=== PATIENT | male | born 1980 | race Hispanic/Latino ===

== ENCOUNTER 2020-02-09 22:37 | Emergency (ER) | payer SELFPAY ==
--- OUTSIDE RECORDS SUMMARY | 2020-02-09 22:40 | XMS REPORT | Clinical Summary ---
:1980 Author Organization [facility] Dist[facility] ict Address [address] [place] [address] Care Team Providers Name Role Phone Unavailable Primary Care Provider Unavailable Allergies No Known Allergies Medications Medication Sig Dispensed Refills Start Date End Date Status busPIRone (BUSPAR) 10 mg Take 10 mg by 0 Active tablet mouth 3 times daily. chlordiazePOXIDE Take 2 capsules by mouth every 6 hours D ay 1: 2 tablets Q6h 16 capsule 0 01/16/2016 Active (LIBRIUM) 25 mg Day 2: 1 tablet Q6h capsuleIndications: Day 3: 1 tablet Q12h Alcohol intoxication, Day 4: 1 tablet at bed time. uncomplicated Active Problems Not on file Social History Tobacco Use Types Packs/Day Years Used Date Never Assessed Sex Assigned at Date Recorded Not on file Job Start Date Occupation Industry Not on file Not on file Not on file Travel History Travel Start Travel End No recent travel history available. Last Filed Vital Signs Not on file Plan of Treatment Health Maintenance Due Date Last Done Comments IMM Influenza Seasonal May to October (>/= 19 yrs) 05/17/2020 Results Not on fileafter 02/08/2019 Insurance Payer Benefit Plan / Subscriber ID Effective Dates Phone Addre ss Type Group [facility] SELF-PAY xxxxxxxxx 2016-Presen [phone] [id number] SELF-PAY UNSCREENED t [address] [place] [id number]
[2020-02-09 23:59] LABS: Absolute Lymphocytes (CBC) 1.8 K/uL (0.7-4.9); Basophils % 0.3 % (0-1.3); Hematocrit 36.4 % (39.6-49.0); Lymphocytes % 14.1 % (15.3-44.8); MPV 8.1 fL (7.6-11.3); RBC Red Blood Cell Count 4.93 M/uL (4.33-5.43)
[2020-02-10 00:03] LABS: Protime INR 1.07
[2020-02-10 00:15] LABS: ALT/SGPT 24 U/L (12-78); AST/SGOT 12 U/L (15-37); Albumin 4.1 g/dL (3.4-5.0); Alkaline Phosphatase 57 U/L (45-117); BUN Blood Urea Nitrogen 8 mg/dL (7-18); Bicarbonate 27 mmol/L (21-32); Bilirubin Direct < 0.1 mg/dL (0-0.2); Bilirubin Total 0.2 mg/dL (0.2-1.0); Glucose Level 90 mg/dL (74-106); Protein, Total 6.6 g/dL (6.4-8.2); Sodium Level 136 mmol/L (136-145)
[2020-02-10 00:17] LABS: Urine Blood NEGATIVE (NEG); Urine Glucose NEGATIVE (NEG); Urine Protein NEGATIVE (NEG)
--- NOTE | 2020-02-10 01:39 | EDPHYS ---
Physician Documentation [facility] Name: Guevara Farrell Age: 39 yrs Sex: Male : 1980 Arrival Date: 02/09/2020 Time: 22:38 Bed 2 Private MD: ED Physician Justyn Olivera HPI: 02/08 23:41 This 39 yrs old Unknown Male presents to ER via Wheelchair with complaints of Altered kb Mental Status. 23:41 The patient presents with confusion. Onset: The symptoms/episode began/occurred 3 kb day(s) ago. Possible causes: unknown. Associated signs and symptoms: Pertinent positives: gait abnormality, Pertinent negatives: abdominal pain, agitation, ataxia, blurred vision, chest pain, combativeness, confusion, diaphoresis, diarrhea, dizziness, headache, lightheadedness, nausea, numbness, palpitations, seizure, shortness of breath, tingling, vertigo, vomiting, weakness. Current symptoms: In the emergency department the patient's symptoms are unchanged from the initial presentation. Patient's baseline: Neuro: alert and fully oriented, Motor: no deficits, Ambulation: walks without assistance, Speech: normal. The patient has not experienced similar symptoms in the past. The patient has not recently seen a physician. Pt states he has been uncoordinated for the past few days. Friend states pt has been very forgetful since Thursday. States he slept all day on Thursday. Thursday the friend took the pt with him to a few stores and when the friend later asked him if he remembered what they did the pt couldn't tell him. Friend reports pt has been taking hydrocodone and flexeril because he had shoulder surgery a month ago and isn't sure if he took too much or what could be going on. . Historical: - Allergies: 23:00 No Known Allergies; lp1 - Home Meds: 23:00 None [Active]; lp1 - PMHx: 23:00 None; lp1 - PSHx: 23:00 Shoulder surgery; lp1 - Immunization history:: Adult Immunizations up to date. - Social history:: Smoking status: Patient denies any tobacco usage or history of. ROS: 23:41 Constitutional: Negative for fever, chills, and weight loss, Eyes: Negative for injury, kb pain, redness, and discharge, ENT: Negative for injury, pain, and discharge, Neck: Negative for injury, pain, and swelling, Cardiovascular: Negative for chest pain, palpitations, and edema, Respiratory: Negative for shortness of breath, cough, wheezing, and pleuritic chest pain, Abdomen/GI: Negative for abdominal pain, nausea, vomiting, diarrhea, and constipation, Back: Negative for injury and pain, MS/Extremity: Negative for injury and deformity, Skin: Negative for injury, rash, and discoloration. 23:41 Neuro: Positive for altered mental status, gait disturbance, Negative for dizziness, headache, hearing loss, loss of consciousness, numbness, seizure activity, speech changes, syncope, near syncope, tingling, tinnitus, tremor, visual changes, weakness. Exam: 23:44 Constitutional: This is a well developed, well nourished patient who is awake, alert, kb and in no acute distress. Head/Face: Normocephalic, atraumatic. Eyes: Pupils equal round and reactive to light, extra-ocular motions intact. Lids and lashes normal. Conjunctiva and sclera are non-icteric and not injected. Cornea within normal limits. Periorbital areas with no swelling, redness, or edema. ENT: Nares patent. No nasal discharge, no septal abnormalities noted. Tympanic membranes are normal and external auditory canals are clear. Oropharynx with no redness, swelling, or masses, exudates, or evidence of obstruction, uvula midline. Mucous membranes moist. Neck: Trachea midline, no thyromegaly or masses palpated, and no cervical lymphadenopathy. Supple, full range of motion without nuchal rigidity, or vertebral point tenderness. No Meningismus. Chest/axilla: Normal chest wall appearance and motion. Nontender with no deformity. No lesions are appreciated. Cardiovascular: Regular rate and rhythm with a normal S1 and S2. No gallops, murmurs, or rubs. Normal PMI, no JVD. No pulse deficits. Respiratory: Lungs have equal breath sounds bilaterally, clear to auscultation and percussion. No rales, rhonchi or wheezes noted. No increased work of breathing, no retractions or nasal flaring. Abdomen/GI: Soft, non-tender, with normal bowel sounds. No distension or tympany. No guarding or rebound. No evidence of tenderness throughout. Skin: Warm, dry with normal turgor. Normal color with no rashes, no lesions, and no evidence of cellulitis. MS/ Extremity: Pulses equal, no cyanosis. Neurovascular intact. Full, normal range of motion. 23:44 Neuro: Orientation: is normal, to person, place, time \T\ situation. Mentation: is normal, able to follow commands, Motor: is normal, Sensation: is normal, Gait: is unsteady. Vital Signs: 22:56 BP 126 / 94; Pulse 82; Resp 18; Temp 98.2(TE); Pulse Ox 98% on R/A; Weight 72.57 kg lp1 (R); Height 5 ft. 4 in. (162.56 cm); Pain 0/10; 02/09 00:00 BP 126 / 89; Pulse 80; Resp 16; Pulse Ox 99% ; rr5 01:44 BP 118 / 86; Pulse 81; Resp 16; Temp 98; Pulse Ox 99% on R/A; rv 02/08 22:56 Body Mass Index 27.46 (72.57 kg, 162.56 cm) lp1 MDM: 02/08 22:56 Patient medically screened. kb 23:41 Data reviewed: vital signs, nurses notes. Data interpreted: Pulse oximetry: on room air kb is 98 %. Interpretation: normal. 23:46 ED course: Pt now ambulating to restroom with steady gait. . kb 02/09 00:40 Transition of care: After a detail discussion of the patient's case, care is kb transferred to Justyn Olivera MD. 02/08 23:02 Order name: Acetaminophen 02/08 23:02 Order name: Basic Metabolic Panel 02/08 23:02 Order name: CBC with Diff 02/08 23: Order name: ETOH Level 02/08 23:02 Order name: Hepatic Function 02/08 23:02 Order name: PT-INR; Complete Time: 00:08 02/08 23:02 Order name: Ptt, Activated; Complete Time: 00:08 02/08 23:02 Order name: Salicylate; Complete Time: 00:16 02/08 23:02 Order name: Urine Drug Screen; Complete Time: 00:32 02/09 01:37 Interpretation: Normal except: BZO POSITIVE; OPI POSITIVE. tw4 02/08 23:03 Order name: Acetaminophen Level; Complete Time: 00:16 [facility] 02/08 23:03 Order name: Basic Metabolic Panel; Complete Time: 00:16 [facility] 02/08 23:03 Order name: CBC with Automated Diff; Complete Time: 00:07 [facility] 02/08 23:03 Order name: Alcohol Serum/Plasma; Complete Time: 00:17 EDCT 02/08 23:03 Order name: Liver (Hepatic) Function; Complete Time: 00:16 [facility] 02/08 22:56 Order name: CT Head Brain wo Cont kb 02/08 23:02 Order name: EKG; Complete Time: 23:03 kb 02/08 23:02 Order name: EKG - Nurse/Tech; Complete Time: 23:56 kb 02/08 23:02 Order name: IV Saline Lock; Complete Time: 23:56 kb 02/08 23:02 Order name: Labs collected and sent; Complete Time: 23:57 kb 02/08 23:02 Order name: Urine Dipstick-Ancillary (obtain specimen); Complete Time: 23:57 kb 02/09 00:06 Order name: Urine Dipstick--Ancillary (enter results); Complete Time: 00:19 mt EC:51 Rate is 69 beats/min. Rhythm is regular. QRS Anderson is Normal. AR interval is normal. QT tw4 interval is normal. No Q waves. T waves are Normal. No ST changes noted. Clinical impression: Normal ECG. Interpreted by me. Reviewed by me. Administered Medications: No medications were administered Disposition: 03:52 Co-signature as Attending Physician, Justyn Olivera MD I agree with the assessment and tw4 plan of care. Disposition: 02/10/20 01:38 Discharged to Home. Impression: Adverse effect of benzodiazepines, Adverse effect of other opioids. - Condition is Stable. - Discharge Instructions: Benzodiazepine Overdose, Opioid Use Disorder, Delirium. - Medication Reconciliation Form, Thank You Letter, Antibiotic Education, Prescription Opioid Use form. - Follow up: Private Physician; When: Upon discharge from the Emergency Department; Reason: If symptoms return, Recheck today's complaints, Continuance of care, Re-evaluation by your physician. - Problem is new. - Symptoms have improved. Signatures: Dispatcher [employer] EDMelissa Armenta, CIVIL RIGHTS INVESTIGATOR-C CIVIL RIGHTS INVESTIGATOR-Aggie Randle, RN RN lp1 Justyn Olivera MD MD tw4 Uriel Reed, JOSE JUAN RN rv Corrections: (The following items were deleted from the chart) 02/08 23:41 23:41 Neuro: Positive for altered mental status, Negative for dizziness, headache, kb hearing loss, loss of consciousness, numbness, seizure activity, speech changes, syncope, near syncope, tingling, tinnitus, tremor, visual changes, weakness, kb 02/09 01:45 01:38 02/10/2020 01:38 Discharged to Home. Impression: Adverse effect of rv benzodiazepines; Adverse effect of other opioids. Condition is Stable. Forms are Medication Reconciliation Form, Thank You Letter, Antibiotic Education, Prescription Opioid Use. Follow up: Private Physician; When: Upon discharge from the Emergency Department; Reason: If symptoms return, Recheck today's complaints, Continuance of care, Re-evaluation by your physician. Problem is new. Symptoms have improved. tw4
--- NOTE | 2020-02-10 01:39 | ER ---
Nurse's Notes [facility] Name: Guevara Farrell Age: 39 yrs Sex: Male : 1980 Arrival Date: 02/09/2020 Time: 22:38 Bed 2 Private MD: Diagnosis: Adverse effect of benzodiazepines;Adverse effect of other opioids Presentation: 02/08 22:56 Chief complaint: Patient's friend states he has been confused and forgetful since lp1 Thursday, 2 days ago; Patient states "I feel like my coordination is bad, I can't walk straight"; Patient denies any vision changes, extremity weakness. Coronavirus screen: Proceed with normal triage. Ebola Screen: No symptoms or risks identified at this time. Initial Sepsis Screen: Does the patient meet any 2 criteria? No. Patient's initial sepsis screen is negative. Does the patient have a suspected source of infection? No. Patient's initial sepsis screen is negative. Risk Assessment: Do you want to hurt yourself or someone else? Patient reports no desire to harm self or others. Onset of symptoms was February 07, 2020. 22:56 Method Of Arrival: Wheelchair lp1 22:56 Acuity: CHA 3 lp1 Historical: - Allergies: 23:00 No Known Allergies; lp1 - Home Meds: 23:00 None [Active]; lp1 - PMHx: 23:00 None; lp1 - PSHx: 23:00 Shoulder surgery; lp1 - Immunization history:: Adult Immunizations up to date. - Social history:: Smoking status: Patient denies any tobacco usage or history of. Screenin:25 Abuse screen: Denies threats or abuse. Denies injuries from another. Nutritional lp1 screening: No deficits noted. Tuberculosis screening: No symptoms or risk factors identified. Fall Risk Total Redmond Fall Scale indicates High Risk Score (45 or more points). Fall prevention measures have been instituted. Side Rails Up X 2 As available patient and family educated on Fall Prevention Program and Strategies. Assessment: 23:00 General: Appears in no apparent distress. comfortable, Behavior is calm, cooperative, rr5 appropriate for age. Pain: Denies pain. 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 23:00 Cardiovascular: Capillary refill < 3 seconds Patient's skin is warm and dry. rr5 Respiratory: Airway is patent Respiratory effort is even, unlabored, Respiratory pattern is regular, symmetrical. GI: No signs and/or symptoms were reported involving the gastrointestinal system. : No signs and/or symptoms were reported regarding the genitourinary system. EENT: No signs and/or symptoms were reported regarding the EENT system. Derm: Skin is intact, is healthy with good turgor, Skin temperature is warm. Musculoskeletal: Circulation, motion, and sensation intact. Capillary refill < 3 seconds. 02/09 00:02 Reassessment: Patient appears in no apparent distress at this time. No changes from rr5 previously documented assessment. Patient and/or family updated on plan of care and expected duration. Pain level reassessed. awaiting for results. 01:15 Reassessment: Patient appears in no apparent distress at this time. Patient is alert, rr5 oriented x 3, equal unlabored respirations, skin warm/dry/pink. Vital Signs: 02/08 22:56 BP 126 / 94; Pulse 82; Resp 18; Temp 98.2(TE); Pulse Ox 98% on R/A; Weight 72.57 kg lp1 (R); Height 5 ft. 4 in. (162.56 cm); Pain 0/10; 02/09 00:00 BP 126 / 89; Pulse 80; Resp 16; Pulse Ox 99% ; rr5 01:44 BP 118 / 86; Pulse 81; Resp 16; Temp 98; Pulse Ox 99% on R/A; rv 02/08 22:56 Body Mass Index 27.46 (72.57 kg, 162.56 cm) lp1 ED Course: 02/08 22:38 Patient arrived in ED. cl3 22:55 Melissa Fink FNP-C is [facility]. kb 22:55 Justyn Olivera MD is Attending Physician. kb 23:00 Arm band placed on. lp1 23:20 Albert Buck RN is Primary Nurse. rr5 23:20 Patient has correct armband on for positive identification. Placed in gown. Bed in low rr5 position. Call light in reach. Side rails up X2. air sampling and monitoring on. Pulse ox on. NIBP on. 23:24 Triage completed. lp1 23:30 CT Head Brain wo Cont In Process Unspecified. EDMS 23:50 Urine collected: clean catch specimen, clear, EKG done, by ED staff, reviewed by sharan MO. 23:55 Inserted saline lock: 20 gauge in right antecubital area, using aseptic technique. rr5 Blood collected. 02/09 01:45 No provider procedures requiring assistance completed. IV discontinued, intact, rv bleeding controlled, No redness/swelling at site. Pressure dressing applied. Administered Medications: No medications were administered Outcome: 01:38 Discharge ordered by . kristin 01:45 Discharged to home ambulatory, with family. rv 01:45 Condition: good 01:45 Discharge instructions given to patient, family, Instructed on discharge instructions, follow up and referral plans. Demonstrated understanding of instructions, follow-up care. 01:45 Patient left the ED. rv Signatures: Dispatcher [employer] EDCT Melissa Fink FNP-C FNP-Ckb Pena, Laura RN RN lp1 Justyn Olivera MD MD tw4 Uriel Reed, RN RN Albert Dye, RN RN rr5 Orquidea Jolley cl3
[2020-02-10 01:54] VITALS: O2SAT 99
[2020-02-10 01:55] VITALS: BP 118/86; TEMP 98
--- NOTE | 2020-02-10 06:48 | EKG ---
Test Date: 2020-02-09 Test Time: 23:52:19 Apartment Maintenance: R MEASUREMENT RESULTS: Intervals: Rate: 69 WI: 152 QRSD: 82 QT: 356 QTc: 381 [place]: P: 41 WI: 152 QRS: 42 T: 5 INTERPRETIVE STATEMENTS: Normal sinus rhythm Normal ECG Compared to ECG 11/02/2015 14:40:42 Sinus tachycardia no longer present Electronically Signed On 02-10-20 06:47:50 CDT by Nilo Parra
--- NOTE | 2020-02-10 18:23 | RAD REPORT ---
EXAM DESCRIPTION: CT - Head Brain Wo Cont - 02/10/2020 5:27 am CLINICAL HISTORY: 39-year-old male with confusion and forgetfulness since Thursday. Patient states he feels like his coordination is off, mental status change TECHNIQUE: Multiple axial CT images of the brain were performed followed by sagittal and coronal rec onstructed images. The CT study is performed according to ALARA (as low as reasonably achievable) or ALARA/IMAGE GENTLY, with automatic adjustment of mA and/or kV according to patient size. Performed on: 02/09/2020 at 11:19 PM COMPARISON: 11/02/2015. FINDINGS: There is no evidence of mass, acute mass effect or midline shift. There are no acute extra -axial fluid collections. There is no evidence of acute intracranial hemorrhage. The cerebral sulci and ventricles are normal in size and configuration. There are no focal abnormal areas of increased or decreased attenuation. There is no significant mucosal thickening of the paranasal sinuses. The mastoid air cells are clear. The orbital contents are grossly unremarkable. No acute osseous abnormalities are identified. No focal soft tissue abnormalities are identified. IMPRESSION: There is no evidence of acute intracranial pathology. Electronically signed by: Shivani Ramírez DO 02/09/2020 11:43 PM CDT Due to temporary technical issues with the PACS/Fluency reporting system, reports are being signed by the in house radiologist without review as a courtesy to ensure prompt reporting. The interpreting r adiologist is fully responsible for the content of the report.
== END 2020-02-10 01:45 | disposition home or self-care (01) ==
LOC: ER 22:37
DX: R41.82 Altered mental status, unspecified (principal); T40.2X5A Adverse effect of other opioids, initial encounter; T42.4X5A Adverse effect of benzodiazepines, initial encounter; Y92.9 Unspecified place or not applicable
CPT/HCPCS: 36415; 70450; 80048; 80076; 80307; 80320; 80329; 81003; 85025; 85610; 85730; 93005; 99284

== ENCOUNTER 2024-09-08 19:28 | Inpatient (IN) | payer OTHER, SELFPAY ==
[2024-09-08] MEDS ORDERED: NA CHLORIDE 0.9% 1,000 ML ONE (20:45)
[2024-09-08 21:01] LABS: MCV 75.9 fL (80-100)
[2024-09-08 21:14] LABS: PT Prothrombin Time 11.4 SECONDS (9.4-12.5); PTT, Activated Partial Thromb 29.7 SECONDS (24.3-36.9); Protime INR 1.09
[2024-09-08 21:15] LABS: Hematocrit 31.5 % (39.6-49.0); Hemoglobin 10.5 g/dL (13.6-17.9); MCH 25.2 pg (27.0-35.0); MCHC 33.2 g/dL (32.0-36.0); MPV 7.9 fL (7.6-11.3); Platelets 240 thou/uL (152-406); RBC Red Blood Cell Count 4.15 M/uL (4.33-5.43); Red Cell Distribution Width 19.5 % (12.1-15.2)
[2024-09-08 21:17] LABS: Nucleated Red Blood Cells % 0.4 % (0-0)
--- NOTE | 2024-09-08 21:26 | RAD REPORT ---
EXAM: CT Head Brain Wo Cont HISTORY: SYNCOPE COMPARISON: 02/09/2020 TECHNIQUE: Multiple contiguous axial images were obtained for a CT of the brain without contrast. Sag ittal and coronal reformats were performed. One or more of the following dose reduction techniques were used: Automated exposure control, adjus tment of the mA and kV according to patient size, and iterative reconstruction. Unless otherwise specified, incidental findings do not require dedicated imaging follow-up. FINDINGS: No evidence of hydrocephalus, intracranial hemorrhage, or extra-axial fluid collection. The brain is normal in morphology. The calvarium is intact. The visualized paranasal sinuses and mastoid air cells are essentially clear . IMPRESSION: No evidence of acute intracranial abnormality.
[2024-09-08 21:27] LABS: ALT/SGPT 387 U/L (16-61); AST/SGOT 430 U/L (15-37); Albumin 3.2 g/dL (3.4-5.0); Albumin/Globulin Ratio 0.9 (1.1-1.8); Alkaline Phosphatase 226 U/L (45-117); Anion Gap 15.8 mEq/L (5.0-15.0); BUN Blood Urea Nitrogen 5 mg/dL (7-18); Bicarbonate 24 mEq/L (21-32); Bilirubin Direct 1.6 mg/dL (0-0.2); Bilirubin Indirect, Calculated 0.4 mg/dL (0.2-0.8); Globulin 3.4 g/dL (2.3-3.5); Glomerular Filtration Rate 103 ml/min (=/>90); Glucose Level 207 mg/dL (74-106); Potassium 2.8 mEq/L (3.5-5.1); Protein, Total 6.6 g/dL (6.4-8.2); Sodium Level 133 mEq/L (136-145)
[2024-09-08] MEDS ORDERED: ASPIRIN 81 MG CHEWABLE TABLET ONE (21:42)
[2024-09-08 21:56] LABS: Barbiturates NEGATIVE (NEGATIVE); Benzodiazepines NEGATIVE (NEGATIVE); Cocaine NEGATIVE (NEGATIVE); METHAMPHETAM NEGATIVE (NEGATIVE); Methadone NEGATIVE (NEGATIVE); Opiates NEGATIVE (NEGATIVE); Phencyclidine NEGATIVE (NEGATIVE); THC Cannibis NEGATIVE (NEGATIVE)
[2024-09-08 22:01] LABS: Specific Gravity < 1.005 (1.005-1.030); Sqamous Epithelial None Seen /HPF (None Seen); Urine Bacteria None Seen /HPF (<20); Urine Bilirubin NEGATIVE (Negative); Urine Blood Negative (Negative); Urine Clarity Clear (Clear); Urine Color Light-Yellow (Yellow); Urine Culture Reflex Order NOT NEEDED; Urine Glucose 3+ (Negative); Urine Ketones NEGATIVE (Negative); Urine Microscopic Reflex YN ORDER UMIC; Urine Nitrite NEGATIVE (Negative); Urine Protein NEGATIVE (Negative); Urine RBC <5 /HPF (None Seen); Urine Urobilinogen Normal (Normal); Urine WBC <5 /HPF (<5); Urine pH 6.5 (5.0-7.0)
[2024-09-08 22:04] LABS: Anisocytosis 1+; Band Neutrophils 1 % (0-1); Blood Morphology Comment NOTED (NOT SEEN); Differential Total Cells Count 100; Eosinophils 1 % (0-3); Lymphocytes 31 % (15-42); Monocytes 5 % (0-10); Nucleated Red Blood Cells 1 /100WBC; Platelet Estimate ADEQ; Segmented Neutrophils 62 % (40-80)
[2024-09-08 22:05] LABS: Polychromasia 1+
--- NOTE | 2024-09-08 22:25 | ER ---
Nurse's Notes [facility] Name: Guevara Farrell Age: 44 yrs Sex: Male : 1980 Arrival Date: 09/08/2024 Time: 19:28 Bed 8 Private MD: Diagnosis: Syncope;Subsequent non-ST elevation (NSTEMI) myocardial infarction Presentation: 09/08 19:49 Chief complaint: Spouse and/or significant other states: unwitnessed episode of al5 syncope. states that the patient has been going through etoh withdrawal, called her prior stating he was having blurred vision. patient states he had a drink about 30 minutes prior to arrival but before that was 8 hours prior. Coronavirus screen: At this time, the client does not indicate any symptoms associated with coronavirus-19. Ebola Screen: No symptoms or risks identified at this time. Initial Sepsis Screen: Does the patient meet any 2 criteria? HR > 90 bpm. Does the patient have a suspected source of infection? No. Patient's initial sepsis screen is negative. Risk Assessment: Do you want to hurt yourself or someone else? Patient reports no desire to harm self or others. Onset of symptoms was September 08, 2024. 19:49 Method Of Arrival: Ambulatory al5 19:49 Acuity: CHA 3 al5 Triage Assessment: 19:54 General: Appears in no apparent distress. comfortable, Behavior is calm, cooperative. al5 Pain: Denies pain. EENT: No signs and/or symptoms were reported regarding the EENT system. Neuro: Reports blurred vision prior to arrival dizziness. Cardiovascular: Patient's skin is warm and dry. Respiratory: Airway is patent Respiratory effort is even, unlabored, Respiratory pattern is regular, symmetrical. GI: Abdomen is flat, non-distended, Reports constipation, reports etoh withdrawl. : Reports pain with urination, "dribbling". Derm: Skin is intact, is healthy with good turgor, Skin is pink, warm \\T\\ dry. normal. Musculoskeletal: No signs and/or symptoms reported regarding the musculoskeletal system. Historical: - Allergies: 19:53 No Known Allergies; al5 - PMHx: 19:53 Alcohol dependence; Alcoholism; al5 - PSHx: 19:53 shoulder; ankle; al5 - Immunization history:: Adult Immunizations up to date. - Infectious Disease History:: Denies. - Social history:: Smoking status: Reported history of juuling and/or vaping. Patient uses alcohol, on a daily basis. - Family history:: not pertinent. - Hospitalizations: : No recent hospitalization is reported. Screenin:41 [facility] ED Fall Risk Assessment (Adult) History of falling in the last 3 months, jb4 including since admission No falls in past 3 months (0 pts) Confusion or Disorientation No (0 pts) Intoxicated or Sedated Yes (3 pts) Impaired Gait No (0 pts) Mobility Assist Device Used No (0 pt) Altered Elimination No (0 pt) Score/Fall Risk Level 3 or more points = High Risk Oriented to surroundings, Maintained a safe environment. Abuse screen: Denies threats or abuse. Nutritional screening: No deficits noted. Tuberculosis screening: No symptoms or risk factors identified. 22:54 [facility] Withdrawal Assessment for Alcohol, revised ([facility]): jb4 Nausea/Vomitin - No nausea or vomiting Headache: 1 - Very mild Paroxysmal Sweats: 0 - No sweats visible Anxiety: 4 - Moderately anxious, guarded Agitation: 0 - Normal actiivty Tremor: 4 - Moderate when client's hands extended Auditory Disturbances: 0 - Not present Visual Disturbances: 0 - Not present Tactile Disturbances: 0 - None Orientation and Clouding of Sensorium: 1 - Oriented but cannot do serial additions Total Score: 10 to 15: Mild Withdrawal. 23:29 [facility] Withdrawal Assessment for Alcohol, revised ([facility]): jb4 Nausea/Vomitin - No nausea or vomiting Headache: 0 - Not present Paroxysmal Sweats: 0 - No sweats visible Anxiety: 0 - No anxiety, at ease Agitation: 0 - Normal actiivty Tremor: 0 - No tremor Auditory Disturbances: 0 - Not present Visual Disturbances: 0 - Not present Tactile Disturbances: 0 - None Orientation and Clouding of Sensorium: 1 - Oriented but cannot do serial additions Total Score: < 10 Very mild withdrawal. Assessment: 20:30 General: Appears in no apparent distress. uncomfortable, Behavior is calm, cooperative, jb4 appropriate for age. Pain: Denies pain. Neuro: Level of Consciousness is awake, alert, obeys commands, Oriented to person, place, time, situation. Cardiovascular: Patient's skin is warm and dry. Respiratory: Airway is patent Respiratory effort is even, unlabored, Respiratory pattern is regular, symmetrical. Derm: Skin is intact, Skin is pink, warm \\T\\ dry. Musculoskeletal: Circulation, motion, and sensation intact. Range of motion: intact in all extremities. 21:46 Reassessment: Pt had 2 bottles of Smirnoff at the bedside. Instructed pt's to take jb4 them to the car. 22:40 Reassessment: Patient appears in no apparent distress at this time. Patient and/or jb4 family updated on plan of care and expected duration. Pain level reassessed. Patient is alert, oriented x 3, equal unlabored respirations, skin warm/dry/pink. 23:29 Reassessment: Patient appears in no apparent distress at this time. Patient and/or jb4 family updated on plan of care and expected duration. Pain level reassessed. Patient is alert, oriented x 3, equal unlabored respirations, skin warm/dry/pink. 23:30 Cardiovascular: Rhythm is sinus tachycardia. jb4 Vital Signs: 19:49 BP 128 / 91; Pulse 115; Resp 16; Temp 98.2; Pulse Ox 100% on R/A; Weight 65.77 kg; al5 Height 5 ft. 4 in. ; 21:21 BP 121 / 87; rn 22:40 BP 140 / 99; Pulse 124; Resp 16; Pulse Ox 99% on R/A; jb4 23:29 BP 118 / 88; Pulse 112; Resp 18; Pulse Ox 99% on R/A; jb4 09/09 00:55 BP 107 / 80; Pulse 109; Resp 18 S; Pulse Ox 97% on R/A; br2 09/08 19:49 Body Mass Index 24.89 (65.77 kg, 162.56 cm) al5 Vitals: 09/08 23:30 Cardiac Rhythm Assessment Sinus tach. jb4 ED Course: 19:31 Patient arrived in ED. jj6 19:53 Triage completed. al5 19:55 Arm band placed on right wrist. Patient placed in waiting room, in view of staff al5 members. 20:00 Benigno Wolff MD is Attending Physician. rn 20:30 Client placed on continuous cardiac and pulse oximetry monitoring. NIBP monitoring jb4 applied. electronic device monitor on. Pulse ox on. 20:51 Inserted saline lock: 22 gauge in right antecubital area, using aseptic technique. hw Blood collected. Flushed with 10 mL NS. 21:03 CT Head Brain wo Cont In Process Unspecified. EDMS 21:14 Urinalysis w/ reflexes Sent. hw 21:15 Urine collected: clean catch specimen, clear. hw 22:24 Matt Mcknight MD is Hospitalizing Provider. rn 22:41 Patient has correct armband on for positive identification. Bed in low position. Call jb4 light in reach. Side rails up X 1. Provided Education on: plan of care. 22:41 No provider procedures requiring assistance completed. Patient admitted, IV remains in jb4 place. 09/09 01:19 Melanie Mcintyre, RN is Primary Nurse. al5 Administered Medications: 09/08 20:52 Drug: NS 0.9% IV 1000 ml IV at 1000 ml once; to be given as a bolus over 60 minutes jb4 Route: IV; Rate: 1000 ml; Site: right antecubital; 09/09 01:20 Follow up: Response: No adverse reaction; IV Status: Completed infusion; IV Intake: al5 1000ml 09/08 21:46 Drug: Aspirin PO Chewable Tablet 324 mg PO once; 81 mg tablets x 4 Route: PO; jb4 22:58 Follow up: Response: No adverse reaction jb4 22:57 Drug: Diazepam IVP 5 mg IVP once Route: IVP; Site: right antecubital; jb4 23:31 Follow up: Response: No adverse reaction; Marked relief of symptoms; Anxiety decreased jb4 Medication: 23:29 VIS not applicable for this client. jb4 Intake: 09/09 01:20 IV: 1000ml; Total: 1000ml. al5 Outcome: 09/08 22:24 Decision to Hospitalize by Provider. rn 09/09 01:20 Admitted to Med/surg accompanied by tech, family with patient, via wheelchair, room al5 406, with chart, Condition: stable Instructed on the need for admit, 01:20 Patient left the ED. al5 Signatures: Dispatcher [employer] EDMS Benigno Wolff MD MD rn Bryson, James RN RN jb4 Bev Rockwell6 Melanie Mcinytre RN RN al5 Kira Perez RN RN br2 Shayy Florez Corrections: (The following items were deleted from the chart) 09/08 23:30 22:54 Clinical [place] Withdrawal Assessment for Alcohol, revised ([facility]): jb4 Headache: 1 - Very mild Anxiety: 4 - Moderately anxious, guarded Tremor: 4 - Moderate when client's hands extended Orientation and Clouding of Sensorium: 1 - Oriented but cannot do serial additions Total Score: 10 to 15: Mild Withdrawal jb4
--- NOTE | 2024-09-08 22:25 | EDPHYS ---
Physician Documentation [facility] Name: Guevara Farrell Age: 44 yrs Sex: Male : 1980 Arrival Date: 09/08/2024 Time: 19:28 Bed 8 Private MD: ED Physician Benigno Wolff HPI: 09/08 21:05 This 44 yrs old Male presents to ER via Ambulatory with complaints of Syncope, rn Alcohol Withdrawal. 21:05 The patient has experienced syncope. Onset: The symptoms/episode began/occurred today. rn Associated injury: The patient did not suffer any apparent associated injury. Current symptoms: Currently, the patient is not experiencing any symptoms. The patient has experienced similar episodes in the past. Patient and family member report syncope earlier today. Patient is a chronic drinker and has on been on a binge since before . States drinks "sips" every hour. Last drink was just prior to arrival and has bottles of alcohol in his jacket. Spouse reports patient is not withdrawing but he has still been actively drinking. Patient reports not eating or drinking much, not drinking water, feels dehydrated and generalized weakness. No focal weakness. No trauma during syncopal episode. Denies focal pain. No chest pain or shortness of breath. Patient reports felt lightheaded and had double vision yesterday, syncopal episode happened earlier today. Currently feels fine and wants to go home and drink.. Historical: - Allergies: 19:53 No Known Allergies; al5 - PMHx: 19:53 Alcohol dependence; Alcoholism; al5 - PSHx: 19:53 shoulder; ankle; al5 - Immunization history:: Adult Immunizations up to date. - Infectious Disease History:: Denies. - Social history:: Smoking status: Reported history of juuling and/or vaping. Patient uses alcohol, on a daily basis. - Family history:: not pertinent. - Hospitalizations: : No recent hospitalization is reported. ROS: 21:05 Constitutional: Negative for fever, chills, and weight loss, Eyes: Negative for injury, rn pain, redness, and discharge, Neck: Negative for injury, pain, and swelling, Cardiovascular: Negative for chest pain, palpitations, and edema, Respiratory: Negative for shortness of breath, cough, wheezing, and pleuritic chest pain, Abdomen/GI: Negative for abdominal pain, nausea, vomiting, diarrhea, and constipation, Back: Negative for injury and pain, MS/Extremity: Negative for injury and deformity, Skin: Negative for injury, rash, and discoloration, Neuro: Positive for syncope, negative for focal weakness or numbness, negative for seizure activity Exam: 21:05 Constitutional: This is a well developed, well nourished patient who is awake, alert, rn and in no acute distress. Patient ambulatory to room, appears as if he has been drinking and not walking a straight line Head/Face: Normocephalic, atraumatic. Eyes: Pupils equal round and reactive to light, extra-ocular motions intact. ENT: Dry mucous membranes Neck: No meningismus or C-spine tenderness Cardiovascular: Tachycardic, regular Respiratory: No increased work of breathing, no retractions or nasal flaring. Abdomen/GI: Soft, non-tender Back: No spinal tenderness. No costovertebral tenderness. Full range of motion. MS/ Extremity: Pulses equal, no cyanosis. Neurovascular intact. Full, normal range of motion. Equal circumference. Neuro: Awake and alert, GCS 15, oriented to person, place, time, and situation. Cranial nerves II-XII grossly intact. Motor strength 5/5 in all extremities. Sensory grossly intact. 21:22 ECG was reviewed by the Attending Physician. rn Vital Signs: 19:49 BP 128 / 91; Pulse 115; Resp 16; Temp 98.2; Pulse Ox 100% on R/A; Weight 65.77 kg; al5 Height 5 ft. 4 in. ; 21:21 BP 121 / 87; rn 22:40 BP 140 / 99; Pulse 124; Resp 16; Pulse Ox 99% on R/A; jb4 23:29 BP 118 / 88; Pulse 112; Resp 18; Pulse Ox 99% on R/A; jb4 09/09 00:55 BP 107 / 80; Pulse 109; Resp 18 S; Pulse Ox 97% on R/A; br2 09/08 19:49 Body Mass Index 24.89 (65.77 kg, 162.56 cm) al5 MDM: 09/08 20:00 Medical Screening Exam initiated rn 21:35 ED course: Troponin 188. Patient denies ever having chest pain or shortness of breath. rn Aspirin ordered. 22:23 Differential Diagnosis: cardiac arrhythmia, drug effect, seizure, vasovagal episode, rn Alcohol intoxication, early withdrawal. Data reviewed: vital signs, nurses notes, lab test result(s), EKG, radiologic studies, CT scan, and as a result, I will admit patient. Consideration of Admission/Observation Patient was admitted/placed on observation. Escalation of care including admission/observation considered. Counseling: I had a detailed discussion with the patient and/or guardian regarding the historical points, exam findings, and any diagnostic results supporting the discharge/admit diagnosis, lab results, radiology results, the need for further work-up and treatment in the hospital. 09/08 20:02 Order name: Acetaminophen 09/08 20:02 Order name: Basic Metabolic Panel 09/08 20:02 Order name: CBC with Diff; Complete Time: 22:18 09/08 20:02 Order name: ETOH Level; Complete Time: 21:35 09/08 20:02 Order name: Hepatic Function 09/08 20:02 Order name: PT-INR; Complete Time: 21:21 09/08 20:02 Order name: Ptt, Activated; Complete Time: 21: 09/08 20:02 Order name: Salicylate; Complete Time: 21:21 09/08 20:02 Order name: Urine Drug Screen; Complete Time: 22:18 09/08 20:02 Order name: Troponin High Sensitivity 09/08 20:32 Order name: Urinalysis w/ reflexes; Complete Time: 22:18 09/08 21:24 Order name: Manual Differential; Complete Time: 22:18 [facility] 09/08 23:27 Order name: Urinalysis w/ reflexes [facility] 09/08 23:27 Order name: Creatine Phosphokinase [facility] 09/08 23:27 Order name: Creatine Phosphokinase [facility] 09/08 23:27 Order name: Creatine Phosphokinase [facility] 09/08 23:32 Order name: Creatine Phosphokinase [facility] 09/08 20:32 Order name: CT Head Brain wo Cont; Complete Time: 21:26 09/08 20:02 Order name: EKG - Nurse/Tech; Complete Time: 20:51 09/08 20:02 Order name: IV Saline Lock; Complete Time: 20:51 rn 09/08 20:02 Order name: Labs collected and sent; Complete Time: 20:51 rn EC:22 Rate is 112 beats/min. Rhythm is regular. QRS [place] is Normal. OR interval is normal. rn QRS interval is normal. QT interval is normal. No Q waves. T waves are Normal. T waves are Inverted in leads II, III, aVF, V3, V4, V5, V6. No ST changes noted. Clinical impression: Sinus tachycardia. Interpreted by me. Reviewed by me. Administered Medications: 20:52 Drug: NS 0.9% IV 1000 ml IV at 1000 ml once; to be given as a bolus over 60 minutes jb4 Route: IV; Rate: 1000 ml; Site: right antecubital; 09/09 01:20 Follow up: Response: No adverse reaction; IV Status: Completed infusion; IV Intake: al5 1000ml 09/08 21:46 Drug: Aspirin PO Chewable Tablet 324 mg PO once; 81 mg tablets x 4 Route: PO; jb4 22:58 Follow up: Response: No adverse reaction jb4 22:57 Drug: Diazepam IVP 5 mg IVP once Route: IVP; Site: right antecubital; jb4 23:31 Follow up: Response: No adverse reaction; Marked relief of symptoms; Anxiety decreased jb4 Disposition Summary: 09/08/24 22:24 Hospitalization Ordered Notes: Hospitalization Status: Inpatient Admission rn Provider: Matt Mcknight rn Location: Telemetry/MedSurg (Inpatient) rn Condition: Stable rn Problem: new rn Symptoms: have improved rn Bed/Room Type: Standard rn Room Assignment: 406(09/08/24 23:59) vk Diagnosis - Syncope rn - Subsequent non-ST elevation (NSTEMI) myocardial infarction rn Forms: - Medication Reconciliation Form rn - SBAR form rn - Leadership Thank You Letter rn Signatures: Dispatcher [employer] EDBenigno García MD MD rn Bryson, James, RN RN jb4 Tiny Louise Amanda, RN RN al5 Corrections: (The following items were deleted from the chart) 20:02 20:02 ACETAMINOPHEN+C.LAB.BRZ ordered. EDMS EDMS 20:02 20:02 BASIC METABOLIC PANEL+C.LAB.BRZ ordered. EDMS EDMS 20:02 20:02 CBC+H.LAB.BRZ ordered. EDMS EDMS 20:02 20:02 ETHANOL+C.LAB.BRZ ordered. EDMS EDMS 20:02 20:02 HEPATIC FUNCTION+C.LAB.BRZ ordered. EDMS EDMS 20:02 20:02 PROTIME (+INR)+COAG.LAB.BRZ ordered. EDMS EDMS 20:02 20:02 PTT, ACTIVATED+COAG.LAB.BRZ ordered. EDMS EDMS 20:02 20:02 SALICYLATE+C.LAB.BRZ ordered. EDMS EDMS 20:02 20:02 URINE DRUG SCREEN+UC.LAB.BRZ ordered. EDMS EDMS 20:33 20:32 Urinalysis+U.LAB.BRZ ordered. EDMS EDMS 23:31 23:27 Creatine Phosphokinase ordered. EDMS EDMS 23:59 22:24 rn vk
[2024-09-08] MEDS ORDERED: DIAZEPAM 10 MG/2 ML INJ SYRINGE ONE (22:48)
--- NOTE | 2024-09-08 23:21 | P.HP ---
Certification for Inpatient Patient admitted to: Inpatient With expected LOS: >2 Midnights Practitioner: I am a practitioner with admitting privileges, knowledge of patient current condition, hospital course, and medical plan of care. Services: Services provided to patient in accordance with Admission requirements found in Title 42 Section 412.3 of the Code of Federal Regulations Patient History Date of Service: 09/09/24 Reason for admission: Syncope History of Present Illness: 44 yrs old Male with past medical history of alcohol abuse, alcohol dependence who was brought to ER with syncope episode patient states that symptoms started 2 weeks ago and has been progressively worsening. Associated with double vision 2 weeks ago. Denies any fever or chills. No nausea vomiting or diarrhea. No focal weakness. Patient was assessed in the ER and is admitted for further management of syncope and alcohol abuse Allergies No Known Allergies Allergy (Unverified 11/02/15 16:37) Home Medications: NK [No Home Meds] 09/09/24 - Past Medical/Surgical History Past Medical History: Reviewed- Non-Contributory Past Surgical History: Reviewed- Non-Contributory - Social History Smoking Status: Current some day smoker Review of Systems 10-point ROS is otherwise unremarkable Physical Examination - Vital Signs Temperature: 98.2 F Blood Pressure: 133/86 Pulse: 97 Respirations: 16 Pulse Ox (%): 94 - Physical Exam General: Alert, In no apparent distress HEENT: Atraumatic, Normocephalic Neck: Supple, No Thyromegaly Respiratory: Clear to auscultation bilaterally, Normal air movement Cardiovascular: Other (Tachycardia) Capillary refill: <2 Seconds Gastrointestinal: Soft and benign, W/out hepatosplenomegaly Musculoskeletal: No clubbing, No swelling Integumentary: No rashes, No breakdown Neurological: Normal speech, Normal strength at 5/5 x4 extr Lymphatics: No axilla or inguinal lymphadenopathy - Studies Laboratory Data (last 24 hrs) 09/08/24 09/08/24 09/08/24 20:44 20:44 20:44 WBC 8.10 Hgb 10.5 L Hct 31.5 L Plt Count 240 PT 11.4 INR 1.09 APTT 29.7 Sodium 133 L Potassium 2.8 L BUN 5 L Creatinine 0.93 Glucose 207 H Total Bilirubin 2.0 H AST 430 H ALT 387 H Alkaline Phosphatase 226 H Assessment and Plan - Plan Syncope Syncope workup CT head Will get an echocardiogram Carotid Doppler NSTEMI NSTEMI possibly type II Will trend cardiac enzymes Will monitor telemetry Started on aspirin and statin EKG did not show any acute changes sinus ST-T suggestive of ischemia Patient denies any chest pain Will get an echocardiogram Cardiology consult. Alcohol abuse Advised cessation Offered measures Watch closely for alcohol withdrawal Will add on Librium Will start on CIWA protocol if needed GI/DVT prophylaxis Advanced directive full code Discharge Plan: Home Plan to discharge in: 48 Hours - Advance Directives Does patient have a Living Will: No Does patient have a Durable POA for Healthcare: No - Code Status/Comfort Care Code Status: Full Code Time Spent Managing Pts Care (In Minutes): 48
[2024-09-08] MEDS ORDERED: ACETAMINOPHEN 325 MG TABLET PO PRN (23:22)
[2024-09-08] MEDS ORDERED: chlordiazePOXIDE HCl 5 MG CAP PO PRN (23:26)
[2024-09-08 23:53] LABS: Creatine Phosphokinase 134 U/L (39-308)
[2024-09-09] MEDS: LORazepam 2 MG/ML VIAL IV PRN (04:14)
[2024-09-09 04:21] LABS: Specific Gravity 1.015 (1.005-1.030); Urine Bilirubin 1+ (Negative); Urine Blood Negative (Negative); Urine Clarity Clear (Clear); Urine Color Yellow (Yellow); Urine Glucose 4+ (Over) (Negative); Urine Ketones NEGATIVE (Negative); Urine Microscopic Reflex YN NO UMIC; Urine Nitrite NEGATIVE (Negative); Urine Protein NEGATIVE (Negative); Urine Urobilinogen Normal (Normal)
[2024-09-09] MEDS: chlordiazePOXIDE HCl 5 MG CAP PO SCH (06:30)
[2024-09-09 07:52] LABS: Magnesium 1.9 mg/dL (1.6-2.4); Potassium 3.2 mEq/L (3.5-5.1)
[2024-09-09 07:56] LABS: Phosphorus 1.3 mg/dL (2.5-4.9)
[2024-09-09] MEDS: POTASSIUM 25 MEQ EFFERV TAB PO ONE (08:19)
[2024-09-09] MEDS: ASPIRIN EC 81 MG TAB PO SCH (08:19)
[2024-09-09] MEDS: POTASS/SODIUM PHOSPHATE 1 PKT POWD.PACK PO SCH (08:20)
[2024-09-09] MEDS: ENOXAPARIN 40 MG/0.4 ML SQ SCH (08:20)
[2024-09-09 11:43] LABS: Albumin 3.1 g/dL (3.4-5.0); Albumin/Globulin Ratio 0.9 (1.1-1.8); Bilirubin Total 2.6 mg/dL (0.2-1.0); Globulin 3.5 g/dL (2.3-3.5); Protein, Total 6.6 g/dL (6.4-8.2)
[2024-09-09 11:57] LABS: Troponin High Sensitivity 151.6 pg/mL (<58.9)
--- NOTE | 2024-09-09 15:07 | EKG ---
Test Date: 2024-09-08 Test Time: 20:01:04 Dope Worker: JOSIAH MEASUREMENT RESULTS: Intervals: Rate: 112 MI: 146 QRSD: 82 QT: 318 QTc: 434 [place]: P: 32 MI: 146 QRS: 81 T: 229 INTERPRETIVE STATEMENTS: Sinus tachycardia ST & T wave abnormality, consider inferior ischemia ST & T wave abnormality, consider anterolateral ischemia Abnormal ECG Compared to ECG 02/09/2020 23:52:19 ST (T wave) deviation now present Possible ischemia now present Sinus rhythm no longer present Electronically Signed On 09-09-24 15:05:46 ROLLER MECHANIC by Chago Pompa
--- NOTE | 2024-09-09 15:40 | ECHO ---
HEIGHT: 5 ft 4 in WEIGHT: 145 lb 3.2 oz DATE OF STUDY: 09/09/[address]: Weston Prieto MD 2-DIMENSIONAL: YES M.MODE: YES DOPPLER: YES COLOR FLOW: YES TDS: NO PORTABLE: YES DEFINITY: NO BUBBLE STUDY: NO DIAGNOSIS: NSTEMI CARDIAC HISTORY: CATHERIZATION: NO SURGERY: NO PROSTHETIC VALVE: NO PACEMAKER: NO MEASUREMENTS (cm) DIASTOLIC (NORMALS) SYSTOLIC (NORMALS) IVSd 1.3 (0.6-1.2) LA Diam 2.6 (1.9-4.0) LVEF 60-65% LVIDd 3.6 (3.5-5.7) LVIDs 2.5 (2.0-3.5) %FS 32% LVPWd 1.3 (0.6-1.2) Ao Diam 3.2 (2.0-3.7) 2 DIMENSIONAL ASSESSMENT: RIGHT ATRIUM: NORMAL LEFT ATRIUM: NORMAL RIGHT VENTRICLE: NORMAL LEFT VENTRICLE: MILD CONCENTRIC LEFT VENTRICULAR HYPERTROPHY TRICUSPID VALVE: NORMAL MITRAL VALVE: NORMAL PULMONIC VALVE: NORMAL AORTIC VALVE: NORMAL PERICARDIAL EFFUSION: NONE AORTIC ROOT: NORMAL LEFT VENTRICULAR WALL MOTION: NORMAL. DOPPLER/COLOR FLOW: NORMAL. COMMENTS: 1. NORMAL LEFT VENTRICULAR EJECTION FRACTION 60-65%. 2. NORMAL WALL MOTION. 3. NORMAL DIASTOLIC FUNCTION. 4. MILD CONCENTRIC LEFT VENTRICULAR HYPERTROPHY. TECHNOLOGIST: BUBBA VILLALTA
--- NOTE | 2024-09-09 18:38 | CON ---
Date of Consultation: 09/09/2024 Reason For Consultation: Syncope. History Of Present Illness: A 44-year-old male with past medical history of chronic alcohol dependen ce, presented to the emergency room because of syncopal episode. Apparently, he has been drinking no nstop for the past 2 weeks. Denies having any chest pain, shortness of breath, orthopnea, cough. No nausea, vomiting, or diarrhea. He is shaking and very unsteady, withdrawal from alcohol activity. Past Medical History: Chronic alcoholism. Medications: Refer reconciliation sheet for detailed list. Allergies: NO KNOWN DRUG ALLERGIES. Family History: No premature coronary artery disease or cancer. Social History: Active drinker and smoker. Does not use any drugs. Review of Systems: All systems reviewed and they are negative except as mentioned in HPI. Physical Examination: Vital Signs: Reviewed. Head and Neck: Pupils are equal, reactive to light. Intact eye movements. No JVD, no cervical lymp hadenopathy. Neck is supple. Thyroid is not enlarged. Lungs: Clear to auscultation bilaterally. No rhonchi, wheezing, or crackles. No accessory muscle u se. Heart: Regular rate and rhythm. No extra sounds. Abdomen: Soft, nontender. Bowel sounds positive. No organomegaly. No masses or hernia. No rigidi ty or rebound. Extremities: No edema, clubbing, or cyanosis. Intact pulses. Skin: No rash. Neurologic: Alert, awake, but with significant tremors. No focal deficits appreciated. Lymph Nodes: No cervical or axillary lymphadenopathy. Investigations: BUN 4, creatinine 0.9. Magnesium was 1.9. Troponin is 150, down from 188 and hemog lobin is 10.5. Assessment/recommendations: 1.Chest discomfort with elevated troponin, mildly. The patient is having active alcohol withdrawal. Keep him in the hospital through the weekend and treat the alcohol withdrawal. Keep him on baby as pirin only and statin and plan for a stress test and an echo on Thursday morning once his withdrawal sy mptoms are under control. We will plan for further ischemia workup including stress test and possibl e heart cath. 2.Dyslipidemia. Continue Lipitor 40 mg at bedtime. 3.Active alcohol withdrawal, on Ativan and to be transitioned to Librium. Recommend multivitamins a nd folic acid supplements. 4.Anemia, mild and chronic. 5.Hypokalemia and this was replaced. Recommend to keep the patient until Thursday once he is stable f rom the delirium tremens status from the alcohol withdrawal point of view, then cardiac workup will b e done. SR/MODL Voice ID: [id number] Report ID: [id number]
--- NOTE | 2024-09-09 19:24 | P.PN ---
Subjective Date of Service: 09/09/24 Chief Complaint: Syncope Patient is experiencing tremors and relates his symptoms to alcohol withdrawal. He denies any chest pain or palpitation. No recorded fever. Physical Examination - Vital Signs Temperature: 98.1 F Blood Pressure: 142/95 Pulse: 80 Respirations: 20 Pulse Ox (%): 100 - Studies Laboratory Data (last 24 hrs) 09/08/24 09/08/24 09/08/24 20:44 20:44 20:44 WBC 8.10 Hgb 10.5 L Hct 31.5 L Plt Count 240 PT 11.4 INR 1.09 APTT 29.7 Sodium 133 L Potassium 2.8 L BUN 5 L Creatinine 0.93 Glucose 207 H Total Bilirubin 2.0 H AST 430 H ALT 387 H Alkaline Phosphatase 226 H Assessment And Plan - Plan Physical examination General: Alert and oriented x3, NAD, HEENT: Conjunctiva not pale, anicteric sclera Neck: Supple, no elevated JVD Heart: Heart sounds 1 and 2 normal, regular rhythm, normal rate, no pedal edema Lungs: Clear to auscultation bilaterally, adequate breath sounds bilaterally, no rhonchi or crackles. Abdomen: Soft, nondistended, nontender, normal bowel sounds. Extremities: No tenderness, no deformity Skin: Normal skin turgor, no rash, no nodules or ulcers. Neuro: No focal motor deficit. Normal speech. Hand tremors. Psychiatry: Normal mood, no agitation. Assessment and plan Syncope NSTEMI Probably related to alcohol intake, however patient's troponin is elevated CT head: Negative. Troponin mildly elevated but trended down with monitor Echocardiogram shows normal EF. Cardiology input appreciated-treat alcohol withdrawal and plan for stress test o n Thursday. Aspirin, lipitor Alcohol abuse Alcohol withdrawal Patient alcohol level elevated to 413 in the ED. CIWA protocol initiated with Ativan and Librium Advised cessation Hypokalemia Hypophosphatemia Replace electrolytes IV and oral as needed. DVT prophylaxis: Lovenox Advanced directive: full code
[2024-09-09] MEDS: ATORVASTATIN 40 MG TAB PO SCH (20:38)
[2024-09-10 06:34] LABS: Albumin 2.8 g/dL (3.4-5.0); Albumin/Globulin Ratio 0.8 (1.1-1.8); Anion Gap 9.9 mEq/L (5.0-15.0); Bilirubin Total 2.6 mg/dL (0.2-1.0); Globulin 3.3 g/dL (2.3-3.5); Potassium 3.9 mEq/L (3.5-5.1); Protein, Total 6.1 g/dL (6.4-8.2)
[2024-09-10 06:48] LABS: Hematocrit 27.6 % (39.6-49.0); MCH 25.4 pg (27.0-35.0); MCHC 32.4 g/dL (32.0-36.0); MCV 78.4 fL (80-100); MPV 8.6 fL (7.6-11.3); Nucleated Red Blood Cells % 0.5 % (0-0); Platelets 206 thou/uL (152-406); RBC Red Blood Cell Count 3.52 M/uL (4.33-5.43); Red Cell Distribution Width 19.8 % (12.1-15.2)
[2024-09-10] MEDS: POTASSIUM CL SA 10 MEQ TAB PO ONE (09:03)
[2024-09-10 11:57] LABS: Band Neutrophils 3 % (0-1); Differential Total Cells Count 100; Eosinophils 3 % (0-3); Lymphocytes 21 % (15-42); Monocytes 5 % (0-10); Segmented Neutrophils 68 % (40-80)
[2024-09-10 11:58] LABS: Anisocytosis 1+; Blood Morphology Comment NOTED (NOT SEEN); Platelet Estimate ADEQ
[2024-09-10 11:59] LABS: Polychromasia 1+; Target Cells 1+
--- NOTE | 2024-09-10 18:22 | P.PN ---
Subjective Date of Service: 09/10/24 Chief Complaint: Syncope Patient states he feels better today compared to yesterday. He has been up and ambulating. He has no new complaint. He denies any palpitation, no nausea or vomiting. No recorded fever. Physical Examination - Vital Signs Temperature: 98.4 F Blood Pressure: 128/92 Pulse: 95 Respirations: 20 Pulse Ox (%): 100 Assessment And Plan - Plan Physical examination General: Alert and oriented x3, NAD, HEENT: Conjunctiva not pale, anicteric sclera Neck: Supple, no elevated JVD Heart: Heart sounds 1 and 2 normal, regular rhythm, normal rate, no pedal edema Lungs: Clear to auscultation bilaterally, adequate breath sounds bilaterally, no rhonchi or crackles. Abdomen: Soft, nondistended, nontender, normal bowel sounds. Extremities: No tenderness, no deformity Skin: Normal skin turgor, no rash, no nodules or ulcers. Neuro: No focal motor deficit. Normal speech. Hand tremors. Psychiatry: Normal mood, no agitation. Assessment and plan Syncope NSTEMI Probably related to alcohol intake, however patient's troponin is elevated CT head: Negative. Troponin mildly elevated but trended down with monitor Echocardiogram shows normal EF. Cardiology Dr. Pompa's follow and recommend to treat alcohol withdrawal and plan for stress test on Thursday. Aspirin, lipitor Alcohol abuse Alcohol withdrawal Elevated LFT Chronic alcohol liver disease. Patient alcohol level elevated to 413 in the ED. CIWA protocol initiated with Ativan and Librium Alcohol cessation advised. Hypokalemia Hypophosphatemia Replace electrolytes IV and oral as needed. DVT prophylaxis: Lovenox Advanced directive: full code
[2024-09-11] MEDS: ONDANSETRON 4 MG/2 ML VIAL IV PRN (06:41)
[2024-09-11] MEDS: NA CHLORIDE 0.9% 1,000 ML IV ONE ×2 (06:50→10:38)
[2024-09-11 07:44] LABS: Albumin 2.3 g/dL (3.4-5.0); Albumin/Globulin Ratio 0.8 (1.1-1.8); Anion Gap 9.5 mEq/L (5.0-15.0); Bilirubin Total 2.6 mg/dL (0.2-1.0); Globulin 2.8 g/dL (2.3-3.5); Potassium 4.5 mEq/L (3.5-5.1); Protein, Total 5.1 g/dL (6.4-8.2)
[2024-09-11 08:17] LABS: Hematocrit 16.9 % (39.6-49.0); MCH 26.6 pg (27.0-35.0); MCHC 32.3 g/dL (32.0-36.0); MCV 82.3 fL (80-100); MPV 8.4 fL (7.6-11.3); Platelets 184 thou/uL (152-406); RBC Red Blood Cell Count 2.05 M/uL (4.33-5.43); Red Cell Distribution Width 18.8 % (12.1-15.2)
[2024-09-11 08:26] LABS: Hemoglobin 5.4 g/dL (13.6-17.9)
[2024-09-11 10:05] LABS: Atypical Lymphocytes 1 %; Differential Total Cells Count 100; Lymphocytes 14 % (15-42); Metamyelocytes 1 % (0-0); Monocytes 3 % (0-10); Platelet Estimate ADEQ; Segmented Neutrophils 80 % (40-80)
[2024-09-11 10:06] LABS: Anisocytosis 1+; Blood Morphology Comment NOTED (NOT SEEN); Poikilocytosis 2+; Polychromasia 1+; Stomatocytes 3+; Target Cells FEW
[2024-09-11] MEDS ORDERED: SODIUM CHLORIDE 0.9% 10ML INJ IV PRN (10:06)
[2024-09-11] MEDS: OCTREOTIDE 500 MCG in NA CHLORIDE 0.9% 500 ML IV SCH (10:38)
[2024-09-11] MEDS: NA CHLORIDE 0.9% 100 ML ONE (10:38)
--- NOTE | 2024-09-11 10:54 | RAD REPORT ---
EXAMINATION: CT ABDOMEN AND PELVIS WITH AND WITHOUT CONTRAST CLINICAL INDICATION: Male, 44 years old.Severe anemia. Assess for intra-abdominal bleeding TECHNIQUE: CT abdomen and pelvis was performed before and after the administration of IV contrast as per department protocol. Axial, sagittal and coronal reconstructions were obtained. One or more of the following dose reduction techniques were used: Automated exposure control, adjustment of the mA a nd/or kV according to patient size, and/or iterative reconstruction. Unless otherwise specified, incidental findings do not require dedicated imaging follow-up. [id number]. COMPARISON: No prior exam. FINDINGS: LOWER CHEST: No acute process identified.No significant pericardial effusion. Low attenuation of the interventricular blood pool suggesting anemia. UPPER GI: No significant abnormality. LIVER: Hepatomegaly with profound steatosis. GALLBLADDER/BILE DUCTS: No bladder wall thickening but decompressed likely due to underlying liver di sease.? PANCREAS: No mass, ductal dilation, or dayday-pancreatic fluid. SPLEEN: Unremarkable. ADRENALS: No adrenal masses. KIDNEYS AND URETERS: No hydronephrosis.No suspicious renal mass.Mild perinephric stranding. ABDOMINAL AORTA AND OTHER VESSELS: Normal caliber aorta and IVC. PERITONEUM: No abnormal free fluid. No free air. LYMPH NODES: No pathologic lymphadenopathy. ABDOMINAL WALL: Small fat containing umbilical hernia. SMALL BOWEL/COLON: Small bowel has normal course and caliber. No colonic wall thickening or pericolon ic inflammatory changes.Normal appendix. URINARY BLADDER: Underdistended but grossly unremarkable. REPRODUCTIVE ORGANS: No pathologic process. MUSCULOSKELETAL: No acute or suspicious osseous abnormality. ADDITIONAL FINDINGS: None. IMPRESSION: 1. No source of blood loss identified. No evidence of active gastrointestinal bleeding, hemoperitoneu m, or hematoma identified. 2. Hepatomegaly with pronounced hepatic steatosis which could reflect steatohepatitis.
[2024-09-11] MEDS ORDERED: NOREPINEPHRINE 4 MG in D5W 250 ML IV SCH (11:00)
[2024-09-11] MEDS: PANTOPRAZOLE INJ 80 MG in NA CHLORIDE 0.9% 250 ML IV SCH (11:46)
--- NOTE | 2024-09-11 14:31 | P.PN ---
Subjective Date of Service: 09/11/24 Chief Complaint: Syncope Patient reports he had diarrhea with melena today. He also reports 1 vomiting episode but no coffee-ground emesis. He is up and ambulating, awake and alert. He denies any abdominal pain. His hemoglobin dropped to 5.4 today and now has hypotension. No recorded fever. Physical Examination - Vital Signs Temperature: 97.3 F Blood Pressure: 89/67 Pulse: 89 Respirations: 20 Pulse Ox (%): 100 Assessment And Plan - Plan Physical examination General: Alert and oriented x3, NAD, HEENT: Conjunctiva is pale, anicteric sclera Neck: Supple, no elevated JVD Heart: Heart sounds 1 and 2 normal, regular rhythm, normal rate, no pedal edema Lungs: Clear to auscultation bilaterally, adequate breath sounds bilaterally, no rhonchi or crackles. Abdomen: Soft, nondistended, nontender, normal bowel sounds. Extremities: No tenderness, no deformity Skin: Normal skin turgor, no rash, no nodules or ulcers. Neuro: No focal motor deficit. Normal speech. Hand tremors. Psychiatry: Normal mood, no agitation. Assessment and plan Syncope NSTEMI Probably related to alcohol intake, however patient's troponin is elevated CT head: Negative. Troponin mildly elevated but trended down with monitoring Echocardiogram shows normal EF. Cardiology Dr. Pompa's follow and recommend to treat alcohol withdrawal and plan for stress test as inpatient. Hold aspirin due to significant drop in hemoglobin. Alcohol abuse Alcohol withdrawal Elevated LFT Chronic alcohol liver disease. Patient alcohol level elevated to 413 in the ED. Patient experiencing symptoms of alcohol withdrawal. CIWA protocol initiated with Ativan and Librium Alcohol cessation advised. Acute blood loss anemia GI bleed Hypovolemic shock Drop in hemoglobin and drop in blood pressure suspected to be related to his melena. 2 units of PRBC ordered. Stop all anticoagulation, hold aspirin. Patient given 2 L NS boluses. Transferred to ICU for close monitoring. Start octreotide drip, IV Protonix. IV NS was bolus and blood transfusion completed. Initiate transfer to tertiary center for GI evaluation. Hypokalemia Hypophosphatemia Replace electrolytes IV and oral as needed. DVT prophylaxis: SCD Advanced directive: full code
--- NOTE | 2024-09-11 14:50 | RAD REPORT ---
EXAM: Chest Single View HISTORY: picc COMPARISON: None. FINDINGS: LUNGS/PLEURA: The lungs are clear. No pleural effusions or pneumothorax. No pulmonary edema. MEDIASTINUM: The mediastinal silhouette is within normal limits. CARDIAC: The cardiac silhouette is within normal limits. UPPER ABDOMEN: No significant abnormality. BONES: No acute abnormality. LINES/TUBES/OTHER: Left subclavian approach PICC with tip overlying the distal SVC is suspected posit ion. IMPRESSION: No evidence of acute cardiopulmonary disease.
[2024-09-11] MEDS: LORazepam 2 MG/ML VIAL IV SCH (18:26)
[2024-09-11 18:35] LABS: Hematocrit 21.7 % (39.6-49.0); Hemoglobin 7.4 g/dL (13.6-17.9)
[2024-09-11] MEDS: Mupirocin NASAL 2 APPL/1 GM TUBE NAS SCH (20:07)
[2024-09-11] MEDS ORDERED: PANTOPRAZOLE 40 MG INJ IVP SCH (21:00)
[2024-09-12 00:41] VITALS: BMI 25.0
[2024-09-12 00:48] LABS: Hemoglobin 7.1 g/dL (13.6-17.9)
[2024-09-12 06:02] LABS: Albumin 2.3 g/dL (3.4-5.0); Albumin/Globulin Ratio 0.9 (1.1-1.8); Anion Gap 9.1 mEq/L (5.0-15.0); Bilirubin Total 2.1 mg/dL (0.2-1.0); Globulin 2.6 g/dL (2.3-3.5); Potassium 4.1 mEq/L (3.5-5.1); Protein, Total 4.9 g/dL (6.4-8.2)
[2024-09-12 06:24] LABS: Absolute Basophils 0.1 K/uL (0-0.5); Absolute Eosinophils 0.3 K/uL (0-0.5); Absolute Lymphocytes (CBC) 1.6 K/uL (0.7-4.9); Absolute Monocytes 0.5 K/uL (0.1-1.3); Absolute Neutrophil 4.2 K/uL (1.8-8.0); Eosinophils % 3.8 % (0-4.4); Hematocrit 22.6 % (39.6-49.0); Hemoglobin 7.3 g/dL (13.6-17.9); Lymphocytes % 24.7 % (15.3-44.8); MCH 27.3 pg (27.0-35.0); MCHC 32.4 g/dL (32.0-36.0); MCV 84.4 fL (80-100); MPV 8.8 fL (7.6-11.3); Neutrophils % 63.5 % (41.7-73.7); Nucleated Red Blood Cells % 0.5 % (0-0); Platelets 180 thou/uL (152-406); RBC Red Blood Cell Count 2.68 M/uL (4.33-5.43); Red Cell Distribution Width 16.1 % (12.1-15.2)
[2024-09-12] MEDS ORDERED: ATROPINE SULF 1 MG/10 ML SYR IV ONE (07:11)
[2024-09-12] MEDS: NA CHLORIDE 0.9% 500 ML ONE (07:25)
[2024-09-12] MEDS ORDERED: SODIUM CHLORIDE 0.9% 10ML INJ IV PRN (08:11)
[2024-09-12] MEDS: PANTOPRAZOLE 40 MG INJ IVP SCH (08:20)
[2024-09-12 09:20] LABS: Hematocrit 23.4 % (39.6-49.0); Hemoglobin 7.6 g/dL (13.6-17.9)
[2024-09-12] MEDS ORDERED: OCTREOTIDE ACETATE 100 MCG/ML IV ONE (12:01)
--- NOTE | 2024-09-12 12:15 | P.PN ---
Subjective Date of Service: 09/12/24 Chief Complaint: Syncope Subjective: No new changes, No C/O voiced, Tolerating diet, Ambulating, Improving Review of Systems 10-point ROS is otherwise unremarkable Physical Examination - Vital Signs Temperature: 96.8 F Blood Pressure: 126/88 Pulse: 59 Respirations: 17 Pulse Ox (%): 100 - Physical Exam General: Alert, In no apparent distress HEENT: Atraumatic, PERRLA, EOMI Neck: Supple, JVD not distended Respiratory: Clear to auscultation bilaterally, Normal air movement Cardiovascular: Regular rate/rhythm, Normal S1 S2 Gastrointestinal: Normal bowel sounds, No tenderness Musculoskeletal: No tenderness Integumentary: No rashes Neurological: Normal speech, Normal tone, Normal affect Lymphatics: No axilla or inguinal lymphadenopathy - Studies Medications List Reviewed: Yes Assessment And Plan - Current Problems (Diagnosis) (1) Type 2 SD (myocardial infarction) Current Visit: Yes Status: Acute Plan: Patient denies chest pain, troponin were mild elevated and trended down, patient is having GI bleed with significant drop in Hgb, patient troponin leak is type 2 SD, no further cardiac work up needed.
--- NOTE | 2024-09-12 12:33 | P.PN ---
Subjective Date of Service: 09/12/24 Chief Complaint: Syncope Patient reports diarrhea has stopped. No more melena and no vomiting. Hemoglobin improved to 2:07 unit PRBCs transfusion and stable. Patient denies any chest pain or abdominal pain He also reports 1 vomiting episode but no coffee-ground emesis. He is up and ambulating, awake and alert. No recorded fever. He remained alert and oriented Physical Examination - Vital Signs Temperature: 96.8 F Blood Pressure: 126/88 Pulse: 59 Respirations: 17 Pulse Ox (%): 100 - Studies Medications List Reviewed: Yes Assessment And Plan - Plan Physical examination General: Alert and oriented x3, NAD, HEENT: Conjunctiva is pale, anicteric sclera Neck: Supple, no elevated JVD Heart: Heart sounds 1 and 2 normal, regular rhythm, normal rate, no pedal edema Lungs: Clear to auscultation bilaterally, adequate breath sounds bilaterally, no rhonchi or crackles. Abdomen: Soft, nondistended, nontender, normal bowel sounds. Extremities: No tenderness, no deformity Skin: Normal skin turgor, no rash, no nodules or ulcers. Neuro: No focal motor deficit. Normal speech. No tremors. Psychiatry: Normal mood, no agitation. Assessment and plan Syncope NSTEMI Syncope probably related to alcohol intake, however patient's troponin is elevated CT head: Negative. Troponin mildly elevated but trended down with monitoring. No ACS Echocardiogram shows normal EF. Patient developed GI bleed with significant drop in hemoglobin, aspirin held. Patient evaluated by cardiology today and recommended no further workup. Alcohol abuse Alcohol withdrawal Elevated LFT Chronic alcohol liver disease. Patient alcohol level elevated to 413 in the ED. Alcohol withdrawal symptoms is improving. CIWA protocol initiated with Ativan and Librium Alcohol cessation advised. Acute blood loss anemia GI bleed Hypovolemic shock Drop in hemoglobin and drop in blood pressure suspected to be related to his melena. 2 units of PRBC transfused Alll anticoagulation discontinued, hold aspirin. Patient given 2 L NS boluses. Continue octreotide drip, IV Protonix. GI consulted. Dr. Pride evaluating for EGD. Hypokalemia Hypophosphatemia Replace electrolytes IV and oral as needed. DVT prophylaxis: SCD Advanced directive: full code
[2024-09-12] MEDS: OCTREOTIDE 500 MCG in NA CHLORIDE 0.9% 500 ML IV SCH (13:23)
[2024-09-12 15:05] LABS: Hematocrit 24.4 % (39.6-49.0); Hemoglobin 7.9 g/dL (13.6-17.9)
[2024-09-12 15:09] LABS: Magnesium 1.5 mg/dL (1.6-2.4); Phosphorus 4.1 mg/dL (2.5-4.9)
[2024-09-12] MEDS: Magnesium Sulfate 2gm IVPB 2 G/50 ML BAG IV ONE (16:04)
[2024-09-13 00:08] LABS: Hematocrit 21.4 % (39.6-49.0); Hemoglobin 7.3 g/dL (13.6-17.9)
[2024-09-13 06:25] LABS: Absolute Eosinophils 0.2 K/uL (0-0.5); Absolute Lymphocytes (CBC) 1.1 K/uL (0.7-4.9); Absolute Monocytes 0.5 K/uL (0.1-1.3); Absolute Neutrophil 3.9 K/uL (1.8-8.0); Basophils % 0.7 % (0-1.3); Eosinophils % 4.1 % (0-4.4); Hematocrit 23.3 % (39.6-49.0); Hemoglobin 7.6 g/dL (13.6-17.9); Lymphocytes % 18.5 % (15.3-44.8); MCH 27.7 pg (27.0-35.0); MCHC 32.4 g/dL (32.0-36.0); MCV 85.6 fL (80-100); MPV 7.7 fL (7.6-11.3); Monocytes % 8.7 % (3.3-12.3); Nucleated Red Blood Cells % 0.4 % (0-0); Platelets 217 thou/uL (152-406); RBC Red Blood Cell Count 2.73 M/uL (4.33-5.43); Red Cell Distribution Width 16.4 % (12.1-15.2)
[2024-09-13 06:44] LABS: Albumin 2.3 g/dL (3.4-5.0); Albumin/Globulin Ratio 0.8 (1.1-1.8); Anion Gap 7.6 mEq/L (5.0-15.0); Bilirubin Total 2.1 mg/dL (0.2-1.0); Globulin 2.9 g/dL (2.3-3.5); Potassium 3.6 mEq/L (3.5-5.1); Protein, Total 5.2 g/dL (6.4-8.2)
[2024-09-13] MEDS ORDERED: REGADENOSON 0.4 MG/5 ML SYR IV ONE (08:55)
[2024-09-13] MEDS: NA CHLORIDE 0.9% 500 ML ONE (09:30)
--- NOTE | 2024-09-13 10:36 | RAD REPORT ---
EXAM :Rest Stress Cardiac Imaging CLINICAL HISTORY: Chest pain TECHNIQUE: Rest images: 10.6 mCi technetium 99m sestamibi administered intravenously. Stress images: 31.3 mCi of technetium 99m sestamibi administered intravenously. Cardiac SPECT images obtained COMPARISON: None. FINDINGS: The entire left ventricular myocardium demonstrates homogeneous radiotracer uptake on stress images The entire left ventricular myocardium demonstrates homogeneous radiotracer uptake on rest images Left ventricular ejection fraction equals 68% IMPRESSION: No evidence of a myocardial perfusion defect
[2024-09-13] MEDS ORDERED: propofoL 200 MG/20 ML VIAL IV ONE (10:38)
[2024-09-13] MEDS ORDERED: LIDOCAINE 1% MPF 2 ML AMPULE ONE (10:38)
--- NOTE | 2024-09-13 11:21 | P.PN ---
Date of Service: 09/13/24 Subjective: reports anxiety withdrawal symptoms improving EGD today ROS: 10 point ROS as noted above, otherwise negative Physical Exam: GEN: Alert, NAD CV: Regular rate and rhythm, no edema Pulm: Nonlabored respirations on room air, clear bilaterally ABD: soft, nontender, nondistedned Neuro: Normal speech, normal affect Problem List: Acute blood loss anemia Acute cratered duodenal ulcer Acute eophagitis/gastritis GI bleed Hypovolemic shock Syncope NSTEMI Alcohol abuse Alcohol withdrawal Elevated LFT Chronic alcohol liver disease. Hypokalemia Hypophosphatemia Acute blood loss anemia Acute cratered duodenal ulcer Acute eophagitis/gastritis GI bleed Hypovolemic shock CT abdomen/pelvis (09/11): No source of blood loss identified. Hepatomegaly with pronounced hepatic steatosis hgb down to 5.4 (09/11); s/p 2 uPRBC repeat hgb improved to 7s Alll anticoagulation discontinued, hold aspirin. s/p octreotide drip continue IV Protonix. Dr. Pride, GI consulted s/p EGD (09/13): noted Grade 2 esophagitis, mild patchy gastritis, single cratered acute duodenal ulcer without signs of bleeding, few localized erosions in the antrum. f/u GI clinic in 2-3 weeks for further liver workup and to discuss EGD biopsy results. avoid NSAIDs Syncope NSTEMI Syncope probably related to alcohol intake Troponins mildly elevated but trended flat (peak 180) CT head: Negative. No ACS. Monitor on telemetry. Echo (09/09): normal EF, wall motion. normal diastolic function. Stress test (09/13): negative for stress induced ischemia no further cardiac work up. aspirin held given GI bleed. Alcohol abuse Alcohol withdrawal Elevated LFT Chronic alcohol liver disease. Patient alcohol level elevated to 413 in the ED CIWA protocol in place. Alcohol withdrawal symptoms is improving. PRN Ativan and Librium Alcohol cessation advised. Hypokalemia Hypophosphatemia monitor and replete electrolytes as nee VTE: hold for now Code: Full Dispo, home hgb stable, GI recs. Time Spent Managing Pts Care (In Minutes): 55
[2024-09-13 13:48] LABS: Hematocrit 25.4 % (39.6-49.0); Hemoglobin 8.3 g/dL (13.6-17.9)
--- NOTE | 2024-09-13 14:10 | TREADPHA ---
DX: CHEST PAIN Date of Study: 09/13/24 Ht: 5' 4 " Wt: 146 lb 0 oz Consulting Physician: JESUS MEDICATIONS: ASPIRIN, LIPITOR, LIBRIUM, ATIVAN, DEXTROSE HISTORY: HYPERLIPEDEMIA PHYSICIAL EXAMINATION: RESTING B.P.: 118//83 RESTING H.R.: 67 RESTING EKG: PROTOCOL: LEXISCAN EXERCISE TIME: 3:30 B.P. AT PEAK STRESS: 105/64 IMPRESSION: LEXISCAN STRESS TEST PERFORMED ORDERED. CARDIOLITE INJECTED PER PROTOCOL (SEE NUCLEAR MEDICINE REPORT). NO SUPRA VENTRICULAR TACHYCARDIA, VENTRICULAR TACHYCARDIA OR ARRHYTMIAS NOTED. NO COMPLAINTS OF HEADACHE, SHORTNESS OF BREATH, ASYMPTOMATIC.
--- NOTE | 2024-09-13 15:26 | CON ---
Reason For Consultation: Some melena, suspicious of upper GI bleed. History Of Presenting Illness: The patient is a 44-year-old male with past medical history of chronic alcohol abuse, alcohol dependence, who was brought into the ER because of syncope. He was being managed for alcohol withdrawal and DTs. However, in the hospital, found to have black diarrhe a and suspected upper GI bleed. Also noted to have significant drop in hemoglobin from baseline of a round 8, which he is chronically anemic to 5. GI consultation was requested. He has received 2 unit s of blood transfusion and hemoglobin improved to 7. It has remained stable. Allergies: NO KNOWN DRUG ALLERGIES. Home Medications: As in the chart. Past Medical History: Apart from alcohol abuse dependence not significant. Past Surgical History: Noncontributory. Social History: Smoker and heavy alcohol use. Review of Systems: 10-point review of system apart from above is negative. Physical Examination: Vital Signs: Temperature 98.2, blood pressure 133/86, pulse 97, respiratory rate 16. HEENT: Head atraumatic, normocephalic. Pupils equally reactive. Neck: Supple. Chest: Clear to auscultation bilaterally. Abdomen: Soft, nontender, nondistended. Bowel sounds present. Extremities: No pedal edema. Laboratory Data: Reviewed, as mentioned above in the history of presenting illness. Impression: A 44-year-old gentleman with chronic alcohol abuse, alcohol withdrawal with gastrointest inal bleed. Primary differential would include severe esophagitis versus peptic ulcer disease. Vari ceal bleeding is a possibility as well given the chronic alcohol use and possible underlying cirrhosi s. However, the imaging only revealed hepatomegaly and not found conclusive evidence that the patien t is cirrhotic. Plan: Continue current management. Keep on PPI and octreotide. We will schedule the patient for an upper endoscopy. Risks and complications of the procedure which include, but are not limited to ble eding, infection, perforation, anesthesia complication have been discussed. The patient understands and agrees. US/MODL Voice ID: [id number] Report ID: [id number]
[2024-09-13] MEDS: LORazepam 2 MG/ML VIAL IV PRN (20:51)
[2024-09-13] MEDS: ENSURE ENLIVE 237 ML CAN PO SCH (21:00)
[2024-09-14 05:59] LABS: Hematocrit 23.1 % (39.6-49.0); Hemoglobin 7.4 g/dL (13.6-17.9); MCH 27.8 pg (27.0-35.0); MCHC 32.2 g/dL (32.0-36.0); MCV 86.2 fL (80-100); MPV 7.6 fL (7.6-11.3); Platelets 241 thou/uL (152-406); RBC Red Blood Cell Count 2.68 M/uL (4.33-5.43)
[2024-09-14 06:17] LABS: Albumin 2.3 g/dL (3.4-5.0); Albumin/Globulin Ratio 0.8 (1.1-1.8); Anion Gap 11.5 mEq/L (5.0-15.0); Bilirubin Total 2.3 mg/dL (0.2-1.0); Globulin 2.9 g/dL (2.3-3.5); Potassium 3.5 mEq/L (3.5-5.1); Protein, Total 5.2 g/dL (6.4-8.2)
[2024-09-14 08:35] LABS: Ferritin 2965.2 ng/mL (26-388)
[2024-09-14 09:59] VITALS: O2SAT 99
--- NOTE | 2024-09-14 10:21 | P.PN ---
Date of Service: 09/14/24 Subjective: feeling slightly better today continues with black stool tolerating diet breathing okay on room air restless overnight ROS: 10 point ROS as noted above, otherwise negative Physical Exam: GEN: Alert, NAD CV: Regular rate and rhythm, no edema Pulm: Nonlabored respirations on room air, clear bilaterally ABD: soft, nontender, nondistedned Neuro: Normal speech, normal affect Problem List: Acute blood loss anemia secondary to GI bleed Acute cratered duodenal ulcer Acute eophagitis/gastritis Hypovolemic shock Syncope NSTEMI Alcohol abuse Alcohol withdrawal Elevated LFT Chronic alcohol liver disease. Hypokalemia Hypophosphatemia Acute blood loss anemia secondary to GI bleed Acute cratered duodenal ulcer Acute eophagitis/gastritis Hypovolemic shock CT abdomen/pelvis (09/11): No source of blood loss identified. Hepatomegaly with pronounced hepatic steatosis hgb down to 5.4 (09/11); s/p 2 uPRBC repeat hgb improved to 7s Alll anticoagulation discontinued, hold aspirin. s/p octreotide drip (09/12) continue IV Protonix. Dr. Pride, GI consulted s/p EGD (09/13): noted Grade 2 esophagitis, mild patchy gastritis, single cratered acute duodenal ulcer without signs of bleeding, few localized erosions in the antrum. f/u GI clinic in 2-3 weeks for further liver workup and to discuss EGD biopsy results. avoid NSAIDs Syncope NSTEMI Syncope probably related to alcohol intake Troponins mildly elevated but trended flat (peak 180) CT head: Negative. No ACS. Monitor on telemetry. Echo (09/09): normal EF, wall motion. normal diastolic function. Stress test (09/13): negative for stress induced ischemia no further cardiac work up. aspirin held given GI bleed. Alcohol abuse Alcohol withdrawal Elevated LFT Chronic alcohol liver disease. Patient alcohol level elevated to 413 in the ED CIWA protocol in place. Alcohol withdrawal symptoms is improving. Alcohol cessation advised. PRN Ativan and Librium; wean as tolerated. Monitor LFTs. Hypokalemia Hypophosphatemia monitor and replete electrolytes as nee VTE: hold for now Code: Full Dispo, home hgb stable, GI recs. Time Spent Managing Pts Care (In Minutes): 55
[2024-09-14 12:18] VITALS: BP 114/73; TEMP 98.7
--- NOTE | 2024-09-14 12:30 | P.DS ---
Admission Date: 09/08/24 Discharge Date: 09/14/24 Disposition: ROUTINE DISCHARGE Discharge Condition: GOOD Reason for Admission: Syncope Consultations: GI - Dr. Pride Cardiology - Dr. Khalil Brief History of Present Illness: 44 yo M, PMH: alcohol abuse, alcohol dependence Patient was brought to ER with syncope episode patient states that symptoms started 2 weeks ago and has been progressively worsening. Associated with double vision 2 weeks ago. Denies any fever or chills. No nausea vomiting or diarrhea. No focal weakness. Patient was assessed in the ER and is admitted for further management of syncope and alcohol abuse Hospital Course: Problem List: Acute blood loss anemia secondary to GI bleed Acute cratered duodenal ulcer Acute eophagitis/gastritis Hypovolemic shock Syncope NSTEMI Alcohol abuse Alcohol withdrawal Elevated LFT Chronic alcohol liver disease. Hypokalemia Hypophosphatemia Physician discharge instructions: Patient presented to ED after a syncopal episode at home, reports he had been dealing with ETOH withdrawal right before episode associated with tremors, blurred vision, double vision. Patient alcohol level elevated to 413 in the ED. Troponins were mildly elevated but trended flat (peak 180). Cardiology was consulted. Echocardiogram was normal. Stress test was negative for stress induced ischemia. Suspect syncope/NSTEMI related to alcohol intake / anemia/ withdrawal. No further cardiac work up warranted. Shortly after admission, patient's hemoglobin was noted to drop from 9.0 to 5.4 on 09/11. He did have dark stool. CT abdomen was unable to locate source of blood loss, did note hepatomegaly with pronounced hepatic steatosis. Patient received 2 blood transfusions on 09/11 and repeat hemoglobin improved to 7s post transfusion. Patient was briefly placed on octreotide drip (09/12). Dr. Pride, GI was consulted and performed EGD which noted Grade 2 esopha gitis, mild patchy gastritis, single cratered acute duodenal ulcer without signs of any ongoing bleeding, few localized erosions in the antrum. He was continued on pantoprazole twice daily. Counselled on alcohol cessation. He is to follow up with GI in next 2-3 weeks for further liver workup and to discuss EGD biopsy results. Avoid NSAIDs. Patient was feeling better, tolerating diet without issues, and was deemed stable for discharge. In regards to ETOH withdrawal, patient required frequent ativan/librium throughout hospitalization to combat withdrawal symptoms. LFTs were noted to fluctuate throughout hospitalization but overall trending down (improving). Recommend following up with GI in near future for further liver work up. Patient's alcohol withdrawal symptoms improved and managed with librium and ativan for breakthrough. He will be discharged with short course of both. LFTs (peak vs discharge): T. bili: 2.6 / 2.3 ALT: 387 / 134 AST: 430 / 162 HGb on discharge: 7.4 Medications: Ativan Librium Pantoprazole Zoloft Follow up: PCP 3-5 days GI 2-4 weeks Please call to schedule / confirm appointments Physical Exam: GEN: Alert, NAD CV: Regular rate and rhythm, no edema Pulm: Nonlabored respirations on room air, clear bilaterally ABD: soft, nontender, nondistedned Neuro: Normal speech, normal affect Vital Signs/Physical Exam: Temp Pulse Resp BP Pulse Ox 98.7 F 88 16 114/73 97 09/14/24 12:00 09/14/24 12:00 09/14/24 12:00 09/14/24 12:00 09/14/24 12:00 Laboratory Data at Discharge: WBC 6.40 thou/uL (4.3-10.9) 09/14/24 05:45 Hgb 7.4 g/dL (13.6-17.9) L D 09/14/24 05:45 Hct 23.1 % (39.6-49.0) L 09/14/24 05:45 Plt Count 241 thou/uL (152-406) 09/14/24 05:45 PT 11.4 SECONDS (9.4-12.5) 09/08/24 20:44 INR 1.09 09/08/24 20:44 APTT 29.7 SECONDS (24.3-36.9) 09/08/24 20:44 Sodium 139 mEq/L (136-145) 09/14/24 05:45 Potassium 3.5 mEq/L (3.5-5.1) 09/14/24 05:45 BUN 8 mg/dL (7-18) 09/14/24 05:45 Creatinine 0.71 mg/dL (0.70-1.30) 09/14/24 05:45 Glucose 102 mg/dL (74-106) 09/14/24 05:45 Phosphorus 4.1 mg/dL (2.5-4.9) 09/12/24 14:45 Magnesium 2.3 mg/dL (1.6-2.4) 09/12/24 23:30 Total Bilirubin 2.3 mg/dL (0.2-1.0) H 09/14/24 05:45 AST 162 U/L (15-37) H 09/14/24 05:45 ALT 134 U/L (16-61) H 09/14/24 05:45 Alkaline Phosphatase 174 U/L (45-117) H D 09/14/24 05:45 Home Medications: LORazepam [Ativan] 0.5 mg PO Q12H PRN #10 tab 09/14/24 Pantoprazole [Protonix Tab*] 40 mg PO BID 30 Days #60 tab 09/14/24 Sertraline HCl 0.5 tab PO DAILY 60 Days #30 tab 09/14/24 chlordiazePOXIDE HCl [Librium*] 5 mg PO SEECOM 5 Days #10 cap 09/14/24 New Medications: LORazepam [Ativan] 0.5 mg PO Q12H PRN #10 tab PRN Reason: Anxiety chlordiazePOXIDE HCl [Librium*] 5 mg PO SEECOM 5 Days #10 cap Pantoprazole [Protonix Tab*] 40 mg PO BID 30 Days #60 tab Sertraline HCl 0.5 tab PO DAILY 60 Days #30 tab Physician Discharge Instructions: Physician discharge instructions: Patient presented to ED after a syncopal episode at home, reports he had been dealing with ETOH withdrawal right before episode associated with tremors, blurred vision, double vision. Patient alcohol level elevated to 413 in the ED. Troponins were mildly elevated but trended flat (peak 180). Cardiology was consulted. Echocardiogram was normal. Stress test was negative for stress induced ischemia. Suspect syncope/NSTEMI related to alcohol intake / anemia/ withdrawal. No further cardiac work up warranted. Shortly after admission, patient's hemoglobin was noted to drop from 9.0 to 5.4 on 09/11. He did have dark stool. CT abdomen was unable to locate source of blood loss, did note hepatomegaly with pronounced hepatic steatosis. Patient received 2 blood transfusions on 09/11 and repeat hemoglobin improved to 7s post transfusion. Patient was briefly placed on octreotide drip (09/12). Dr. Pride, GI was consulted and performed EGD which noted Grade 2 esophagitis, mild patchy gastritis, single cratered acute duodenal ulcer without signs of any ongoing bleeding, few localized erosions in the antrum. He was continued on pantoprazole twice daily. Counselled on alcohol cessation. He is to follow up with GI in next 2-3 weeks for further liver workup and to discuss EGD biopsy results. Avoid NSAIDs. Patient was feeling better, tolerating diet without issues, and was deemed stable for discharge. In regards to ETOH withdrawal, patient required frequent ativan/librium throughout hospitalization to combat withdrawal symptoms. LFTs were noted to fluctuate throughout hospitalization but overall trending down (improving). Recommend following up with GI in near future for further liver work up. Patient's alcohol withdrawal symptoms improved and managed with librium and ativan for breakthrough. He will be discharged with short course of both. LFTs (peak vs discharge): T. bili: 2.6 / 2.3 ALT: 387 / 134 AST: 430 / 162 HGb on discharge: 7.4 Medications: Ativan Librium Pantoprazole Zoloft Follow up: PCP 3-5 days GI 2-4 weeks Please call to schedule / confirm appointments Followup: NONE,NONE [Primary Care Provider] - Fahad Pride MD [ACTIVE - CAN ADMIT] - (Follow up in 2-4 weeks) Time spent managing pt's care (in minutes): 45
== END 2024-09-14 13:16 | disposition home or self-care (01) | DRG 280 ==
LOC: ER 19:28 → ERHOLD 23:22 → 4TH 09-09 01:07 → 3RD-ICU 09-11 10:16 → 2ND 09-12 13:12
PROVIDERS: ADMIT Family Medicine; ATTEND Hospitalist
PROC: 30233N1 Transfusion of Nonautologous Red Blood Cells into Peripheral Vein, Percutaneous Approach (ICD-10-PCS; 2024-09-11)
PROC: 02HV33Z Insertion of Infusion Device into Superior Vena Cava, Percutaneous Approach (ICD-10-PCS; 2024-09-11)
PROC: 0DB68ZX Excision of Stomach, Via Natural or Artificial Opening Endoscopic, Diagnostic (ICD-10-PCS; principal; 2024-09-13 10:36)
DX: R55 Syncope and collapse (principal); K20.91 Esophagitis, unspecified with bleeding; I21.A1 Myocardial infarction type 2; K26.0 Acute duodenal ulcer with hemorrhage; K29.01 Acute gastritis with bleeding; R57.1 Hypovolemic shock; F10.239 Alcohol dependence with withdrawal, unspecified; D62 Acute posthemorrhagic anemia; E87.6 Hypokalemia; E78.5 Hyperlipidemia, unspecified; E83.39 Other disorders of phosphorus metabolism; K70.9 Alcoholic liver disease, unspecified; F41.9 Anxiety disorder, unspecified; F17.200 Nicotine dependence, unspecified, uncomplicated; Y90.8 Blood alcohol level of 240 mg/100 ml or more
CPT/HCPCS: 36415; 36430; 36569; 70450; 71045; 74178; 78452; 80048; 80053; 80076; 80143; 80179; 80307; 81001; 81003; 82077; 82550; 82607; 82728; 83540; 83735; 84100; 84132; 84466; 84484; 85014; 85018; 85025; 85027; 85610; 85730; 86850; 86900; 86901; 86920; 88305; 88312; 93005; 93017; 93306; 94760; 96361; 96374; 99285; A9500; J0461; J1650; J2354; J2405; J2470; J2704; J2785; J3360; J3475; J7030; J7040; J7050; J7060; P9016; Q9967